=== PATIENT | female | born 1960 | race Caucasian/White ===

== ENCOUNTER 2016-07-23 05:32 | Day surgery (SDC) | payer SELFPAY | END 2016-07-23 13:20 | disposition T | LOC: SHSC 05:32 → ORW 09:25 → PACU 10:55 → SHSC 11:42 | PROC: 0WB80ZZ Excision of Chest Wall, Open Approach (ICD-10-PCS; principal; 2016-07-23) | PROC: 07B60ZX Excision of Left Axillary Lymphatic, Open Approach, Diagnostic (ICD-10-PCS; 2016-07-23) | PROC: 0JPTXXZ Removal of Tunneled Vascular Access Device from Trunk Subcutaneous Tissue and Fascia, External Approach (ICD-10-PCS; 2016-07-23) | DX: C76.1 Malignant neoplasm of thorax (principal); C77.3 Secondary and unspecified malignant neoplasm of axilla and upper limb lymph nodes; D17.79 Benign lipomatous neoplasm of other sites; Z88.0 Allergy status to penicillin; Z88.1 Allergy status to other antibiotic agents; Z85.3 Personal history of malignant neoplasm of breast; Z86.711 Personal history of pulmonary embolism; Z80.3 Family history of malignant neoplasm of breast; Z90.11 Acquired absence of right breast and nipple; Z90.710 Acquired absence of both cervix and uterus; Z90.89 Acquired absence of other organs; Z98.890 Other specified postprocedural states | CPT/HCPCS: A9520; A9541; J0690; J2250; J2765; Q9968 ==